=== PATIENT | female | born 1940 | race Caucasian/White ===

== ENCOUNTER 2016-10-07 03:47 | Observation (INO) | payer OTHER ==
[~2016-10-07] VITALS: Ht 167.6 cm; Wt 80.4 kg
[~2016-10-07 03:47] MED LIST: ASPIRIN EC325 MG PO; Aspirin E.C. PO; Benicar HCT 20/12.5 PO; CLOPIDOGREL75 MG PO; COZAAR50 MG PO; FLUOROURACIL40 GM TP; HYDROCHLOROTHIA25 MG PO; Hydrodiuril,Oretic,E PO; LIPITOR40 MG PO; LO-DOSE ASPIRIN81 M2 PO; LOPRESSOR25 MG PO; MOTRIN600 MG PO; NITROSTAT0.4 MG SL; PLAVIX75 MG PO; VITAMIN D1000 INTUN PO; VITAMIN D31000 UNIT PO; Zocor PO
[2016-10-07 05:01] LABS: HEMATOCRIT 40.5 % (36.0-46.0); MCH 31.4 PG (29.0-34.0); MCHC 33.3 G/DL (30.0-36.0); MCV 94.2 FL (83-99); MEAN PLAT.VOLUME 9.4 uM^3 (9.5-12.4); PLATELET COUNT 237 K/uL (156-360); RBC DIS.WIDTH-CV 12.3 % (11.8-14.6); RBC DIS.WIDTH-SD 42.5 % (39-53); WHITE BLOOD COUNT 7.5 K/uL (4.1-10.2)
[2016-10-07 05:28] LABS: CHLORIDE 109 mEq/L (99-109); POTASSIUM 3.9 mEq/L (3.7-5.4); SODIUM 142 mEq/L (136-147)
[2016-10-07 05:30] LABS: GLUCOSE 124 mg/dL (70-99)
[2016-10-07 05:31] LABS: ANION GAP 9 MEQ/L (2-14); TROP-I INTERPRETATION NEGATIVE; TROPONIN-I < 0.01 ng/mL (0.0-0.30)
[2016-10-07 05:34] LABS: GFR ESTIMATE (CALCULATED) > 59 mL/min/; UREA NITROGEN (BUN) 19 mg/dL (9-23)
[2016-10-07 09:29] VITALS: BP 125/59
[2016-10-07] MEDS ORDERED: TOPROL XL25 MG PO (09:38)
[2016-10-07 11:45] VITALS: BP 115/56
[2016-10-07 13:37] LABS: TROP-I INTERPRETATION NEGATIVE; TROPONIN-I < 0.01 ng/mL (0.0-0.30)
[2016-10-07 15:31] LABS: TROP-I INTERPRETATION NEGATIVE; TROPONIN-I < 0.01 ng/mL (0.0-0.30)
[2016-10-07 15:35] VITALS: BP 122/60
[2016-10-07] MEDS ORDERED: TYLENOL EXTRA500 MG PO (16:07)
== END 2016-10-07 17:20 | disposition home or self-care (01) ==
LOC: EME 03:47 → EDOF 07:54 → 5WEST 09:04
PROVIDERS: Student in an Organized Health Care Education/Training Program
DX: R07.89 Other chest pain (principal); I25.10 Atherosclerotic heart disease of native coronary artery without angina pectoris; I25.2 Old myocardial infarction; Z95.5 Presence of coronary angioplasty implant and graft; I10 Essential (primary) hypertension; E78.5 Hyperlipidemia, unspecified; E11.9 Type 2 diabetes mellitus without complications
CPT/HCPCS: 71020; 80048; 84484; 85027; 93005; 99281; 99285; G0378

== ENCOUNTER → 2017-09-04 | Outpatient (CLI) | payer OTHER ==
[~2017-09-04] MED LIST changes: +TOPROL XL25 MG PO; +TYLENOL EXTRA500 MG PO
== END | disposition home or self-care (01) ==
LOC: NUC 08:46
DX: M18.0 Bilateral primary osteoarthritis of first carpometacarpal joints (principal); R93.7 Abnormal findings on diagnostic imaging of other parts of musculoskeletal system; R93.8 Abnormal findings on diagnostic imaging of other specified body structures
CPT/HCPCS: 78315; A9503

== ENCOUNTER 2017-10-20 06:30 | Emergency (ER) | payer OTHER ==
[~2017-10-20] VITALS: Ht 167.6 cm; Wt 78.4 kg
[2017-10-20 07:34] LABS: BASOPHIL (%) 0.7 % (0-1); BASOPHIL COUNT 0.1 K/uL (0-0.1); EOSINOPHIL (%) 0.4 % (0-5); HEMATOCRIT 41.4 % (36.0-46.0); HEMOGLOBIN 14.2 G/DL (11.9-15.5); IMMATURE GRANULOCYTE (%) 0.4 % (0.0-0.7); LYMPHOCYTE (%) 27.7 % (15-42); LYMPHOCYTE COUNT 2.3 K/uL (1.0-2.8); MCH 32.3 PG (29.0-34.0); MCHC 34.3 G/DL (30.0-36.0); MCV 94.3 FL (83-99); MONOCYTE (%) 6.3 % (3-12); MONOCYTE COUNT 0.5 K/uL (0-0.8); NEUTROPHIL (%) 64.5 % (45-76); NEUTROPHIL COUNT 5.5 K/uL (1.8-6.4); PLATELET COUNT 289 K/uL (156-360); RBC DIS.WIDTH-CV 12.3 % (11.8-14.6); RBC DIS.WIDTH-SD 42.7 % (39-53); RED BLOOD COUNT 4.39 M/uL (3.80-5.20); WHITE BLOOD COUNT 8.5 K/uL (4.1-10.2)
[2017-10-20 08:03] LABS: CHLORIDE 106 MEQ/L (99-109); CREATINE KINASE 39 IU/L (1-294); CREATININE 0.7 MG/DL (0.6-1.3); GFR ESTIMATE (CALCULATED) > 59 mL/min/; GLUCOSE 113 mg/dL (70-99); POTASSIUM 4.3 MEQ/L (3.7-5.4); SODIUM 139 MEQ/L (136-147); TOTAL CK 39 IU/L (1-294); UREA NITROGEN (BUN) 19 mg/dL (9-23)
[2017-10-20 08:28] LABS: CK-MB 2.4 ng/mL (0.0-4.9)
[2017-10-20 08:30] LABS: CKMB RELATIVE INDEX 6.2 (0.0-3.9)
[2017-10-20 08:49] VITALS: BP 164/81
[2017-10-21] MEDS ORDERED: MEDROL4 MG PO (12:23)
[2017-10-21] MEDS ORDERED: ULTRAM50 MG PO (12:24)
== END 2017-10-20 08:56 | disposition home or self-care (01) ==
LOC: EME 06:30
PROVIDERS: Emergency Medicine
DX: M54.31 Sciatica, right side (principal); M79.604 Pain in right leg; Z86.718 Personal history of other venous thrombosis and embolism; E11.9 Type 2 diabetes mellitus without complications; I10 Essential (primary) hypertension; I25.2 Old myocardial infarction; E78.5 Hyperlipidemia, unspecified; Z95.5 Presence of coronary angioplasty implant and graft; Z95.1 Presence of aortocoronary bypass graft; Z85.828 Personal history of other malignant neoplasm of skin; Z79.82 Long term (current) use of aspirin; Z88.0 Allergy status to penicillin; Z88.6 Allergy status to analgesic agent
CPT/HCPCS: 80048; 82550; 82553; 85025; 93971; 99281; 99284; J1885

== ENCOUNTER 2017-10-21 10:02 | Observation (INO) | payer OTHER ==
[~2017-10-21] VITALS: Ht 168.9 cm; Wt 81.0 kg
[2017-10-21 10:59] LABS: HEMATOCRIT 39.1 % (36.0-46.0); HEMOGLOBIN 13.3 G/DL (11.9-15.5); MCH 32.5 PG (29.0-34.0); MCV 95.6 FL (83-99); PLATELET COUNT 236 K/uL (156-360); RBC DIS.WIDTH-CV 12.2 % (11.8-14.6); RBC DIS.WIDTH-SD 42.5 % (39-53); RED BLOOD COUNT 4.09 M/uL (3.80-5.20); WHITE BLOOD COUNT 8.9 K/uL (4.1-10.2)
[2017-10-21 11:11] LABS: CHLORIDE 102 mEq/L (99-109); POTASSIUM 4.1 mEq/L (3.7-5.4); SODIUM 137 mEq/L (136-147)
[2017-10-21 11:12] LABS: GLUCOSE 115 mg/dL (70-99)
[2017-10-21 11:16] LABS: CREATININE 0.7 mg/dL (0.6-1.3); GFR ESTIMATE (CALCULATED) > 59 mL/min/
[2017-10-21 11:17] LABS: UREA NITROGEN (BUN) 18 mg/dL (9-23)
[2017-10-21 11:20] LABS: TROP-I INTERPRETATION NEGATIVE; TROPONIN-I < 0.01 ng/mL (0.0-0.30)
[2017-10-21] MEDS ORDERED: MEDROL4 MG PO (12:23)
[2017-10-21] MEDS ORDERED: ULTRAM50 MG PO (12:24)
[2017-10-21 12:51] LABS: HDL CHOLESTEROL 49 MG/DL (Desirable>=50); LDL CHOLESTEROL 69 mg/dL (Desirable<100); NON-HDL CHOLESTEROL 88 mg/dL (Desirable<160); TOTAL CHOLESTEROL 137 mg/dL (Desirable<200); TRIGLYCERIDES 97 MG/DL (Normal: <150)
[2017-10-21 13:02] VITALS: BP 118/57
[2017-10-21 17:05] VITALS: BP 116/69
[2017-10-21 17:11] LABS: TROP-I INTERPRETATION NEGATIVE; TROPONIN-I < 0.01 ng/mL (0.0-0.30)
[2017-10-21 20:00] VITALS: BP 136/76
[2017-10-22 00:42] LABS: HEMATOCRIT 39.3 % (36.0-46.0); HEMOGLOBIN 13.4 G/DL (11.9-15.5); MCH 32.4 PG (29.0-34.0); MCHC 34.1 G/DL (30.0-36.0); MCV 95.2 FL (83-99); NRBC (%) 0.4 /100 WBC (0-0); PLATELET COUNT 244 K/uL (156-360); RBC DIS.WIDTH-CV 12.2 % (11.8-14.6); RBC DIS.WIDTH-SD 42.4 % (39-53); RED BLOOD COUNT 4.13 M/uL (3.80-5.20); WHITE BLOOD COUNT 8.3 K/uL (4.1-10.2)
[2017-10-22 00:53] LABS: CHLORIDE 105 mEq/L (99-109); POTASSIUM 4.4 mEq/L (3.7-5.4); SODIUM 140 mEq/L (136-147)
[2017-10-22 00:55] LABS: GLUCOSE 129 mg/dL (70-99); TOTAL PROTEIN 6.1 g/dL (6.4-8.3)
[2017-10-22 00:57] LABS: TOTAL BILIRUBIN 0.9 mg/dL (0.0-1.0)
[2017-10-22 00:59] LABS: ALKALINE PHOSPHATASE 74 IU/L (3-129); CREATININE 0.8 mg/dL (0.6-1.3); GFR ESTIMATE (CALCULATED) > 59 mL/min/
[2017-10-22 01:00] LABS: UREA NITROGEN (BUN) 16 mg/dL (9-23)
[2017-10-22 01:01] LABS: AST (GOT) 20 IU/L (2-34)
[2017-10-22 01:02] LABS: ALT (GPT) 21 IU/L (3-49)
[2017-10-22 01:03] LABS: TROP-I INTERPRETATION NEGATIVE; TROPONIN-I < 0.01 ng/mL (0.0-0.30)
[2017-10-22 05:28] VITALS: BP 123/61
[2017-10-22 07:53] VITALS: BP 109/55
[2017-10-22 12:19] VITALS: BP 112/67
[2017-10-22] MEDS ORDERED: GABAPENTIN100 MG PO (12:28)
[2017-10-22 13:08] LABS: HEMOGLOBIN A1c (GLYCOHEMOGLOB) 6.2 % (Below 5.7)
== END 2017-10-22 13:33 | disposition home or self-care (01) ==
LOC: EME 10:02 → EDOF 11:56 → 4SOUTH 11:56 → ENRESERV 11:57 → 4SOUTH 12:30
PROVIDERS: Emergency Medicine; Internal Medicine
DX: R07.9 Chest pain, unspecified (principal); R11.0 Nausea; I25.10 Atherosclerotic heart disease of native coronary artery without angina pectoris; I25.2 Old myocardial infarction; R73.01 Impaired fasting glucose; I10 Essential (primary) hypertension; E78.5 Hyperlipidemia, unspecified; M54.41 Lumbago with sciatica, right side; Z82.49 Family history of ischemic heart disease and other diseases of the circulatory system; Z80.1 Family history of malignant neoplasm of trachea, bronchus and lung; Z88.5 Allergy status to narcotic agent; Z91.048 Other nonmedicinal substance allergy status; Z88.8 Allergy status to other drugs, medicaments and biological substances; Z88.0 Allergy status to penicillin
CPT/HCPCS: 70450; 71046; 80048; 80053; 80061; 82948; 83036; 83880; 84443; 84484; 85027; 93005; 99281; 99285; G0378; J1650; J7030; J7509

== ENCOUNTER 2017-10-25 04:42 | Emergency (ER) | payer OTHER ==
[~2017-10-25] VITALS: Ht 167.6 cm; Wt 77.7 kg
[~2017-10-25 04:42] MED LIST changes: +GABAPENTIN100 MG PO; +MEDROL4 MG PO; +ULTRAM50 MG PO
[2017-10-25] MEDS ORDERED: NAPROSYN500 MG PO (09:03)
[2017-10-25] MEDS ORDERED: VALIUM5 MG PO (09:03)
[2017-10-25] MEDS ORDERED: MEDROL DOSEPAK4 MG PO (09:03)
[2017-10-25 09:23] VITALS: BP 117/66
== END 2017-10-25 09:20 | disposition home or self-care (01) ==
LOC: EME 04:42
DX: M54.41 Lumbago with sciatica, right side (principal); K57.30 Diverticulosis of large intestine without perforation or abscess without bleeding; M47.896 Other spondylosis, lumbar region; K76.89 Other specified diseases of liver; I25.10 Atherosclerotic heart disease of native coronary artery without angina pectoris; I70.0 Atherosclerosis of aorta; I10 Essential (primary) hypertension; E78.5 Hyperlipidemia, unspecified; I25.2 Old myocardial infarction; Z95.1 Presence of aortocoronary bypass graft; Z95.5 Presence of coronary angioplasty implant and graft; Z79.02 Long term (current) use of antithrombotics/antiplatelets; Z79.82 Long term (current) use of aspirin; Z85.828 Personal history of other malignant neoplasm of skin
CPT/HCPCS: 72131; 74176; 99281; 99285; J1100; J1885